=== PATIENT | female | born 1960 | race American Indian/Alaskan Native ===

== ENCOUNTER 2016-12-28 07:06 | Inpatient (IN) | payer MEDICAID, OTHER ==
[2016-12-28 07:07] VITALS: BMI 17.9
--- NOTE | 2016-12-28 08:20 | C.PDOC ---
History Of Present Illness Patient is a 56 y/o female presents to the ED requesting detox from alcohol and cocaine. Notes last drink was this morning. She also c/o feeling depressed. She has h/o Bipolar disorder. Otherwise, denies any SI/HI, chest pain, shortness of breath, headache, fever, chills, cough, nausea, vomiting, diarrhea, abdominal pain, dizziness or any other physical complaints at this time. Time Seen by Provider: 12/28/16 07:40 Chief Complaint (Nursing): Substance Abuse History Per: Patient History/Exam Limitations: no limitations Onset/Duration Of Symptoms: Gradual Current Symptoms Are (Timing): Still Present Suicide/Self Injury Attempted (Context): None Modifying Factor(s): Alcohol, Cocaine Severity: None Pain Scale Rating Of: 0 Associated Symptoms: denies: Suicidal Thoughts, Suicidal Plan Involuntary Hold By: None Recent travel outside of the [place]: No Additional History Per: Patient Past Medical History Reviewed: Historical Data, Nursing Documentation, Vital Signs Vital Signs: Last Vital Signs Temp 98.0 F 12/28/16 11:59 Pulse 75 12/28/16 11:59 Resp 19 12/28/16 11:59 BP 112/71 12/28/16 11:59 Pulse Ox 100 12/28/16 11:59 - Medical History PMH: Anemia, Asthma, Depression Denies: Diabetes, Hepatitis, HIV, HTN, Chronic Kidney Disease, Seizures, Sexually Transmitted Disease - [facility] Procedures DETOXIFICATION SERVICES FOR SUBSTANCE ABUSE TREATMENT (03/19/16) GROUP HEAD HOLDER FOR SUBSTANCE ABUSE TREATMENT, PSYCHOEDUCATION (03/19/16) Family History: States: Unknown Family Hx - Social History Hx Alcohol Use: Yes Hx Substance Use: Yes - Immunization History Hx Tetanus Toxoid Vaccination: No Hx Influenza Vaccination: No Hx Pneumococcal Vaccination: No Review Of Systems Except As Marked, All Systems Reviewed And Found Negative. Constitutional: Negative for: Fever, Chills Cardiovascular: Negative for: Chest Pain, Palpitations Respiratory: Negative for: Cough, Shortness of Breath Gastrointestinal: Negative for: Nausea, Vomiting, Abdominal Pain Musculoskeletal: Negative for: Neck Pain, Back Pain Skin: Negative for: Rash, Bruising Neurological: Negative for: Headache, Dizziness Psych: Negative for: Suicidal ideation Physical Exam - Physical Exam Appears: Non-toxic, No Acute Distress Skin: Normal Color, Warm, Dry Head: Atraumatic, Normacephalic Eye(s): bilateral: Normal Inspection Oral Mucosa: Moist Neck: Normal ROM, Supple Chest: Symmetrical Extremity: Bilateral: Atraumatic, Normal ROM Neurological/Psych: Oriented x3, Normal Speech, Normal Cognition ED Course And Treatment - Laboratory Results Result Diagrams: 12/28/16 08:29 08 08:29 O2 Sat by Pulse Oximetry: 98 (RA) Pulse Ox Interpretation: Normal Progress Note: Blood work, urinalysis ordered and reviewed. On re-evaluation, pt is resting comfortably, no acute distrees. No physical complaints at this time. Case was d/w who feels she doesn't meet criteria for Detox, but accepted her to psychiatric floor for Bipolar disorder. Disposition - Disposition Disposition: HOSPITALIZED Disposition Time: 10:44 Condition: STABLE - Clinical Impression Clinical Impression: Bipolar disorder - PA / PHLEBOTOMY TECHNOLOGIST / Resident Statement MD/DO has reviewed & agrees with the documentation as recorded. - Scribe Statement The provider has reviewed the documentation as recorded by the Scribe Jeremias Rivera All medical record entries made by the Scribe were at my direction and personally dictated by me. I have reviewed the chart and agree that the record accurately reflects my personal performance of the history, physical exam, medical decision making, and the department course for this patient. I have also personally directed, reviewed, and agree with the discharge instructions and disposition. Decision To Admit - Pt Status Changed To: Hospital Disposition Of: Inpatient - Admit Certification Admit to Inpatient:: After my assessment, the patient will require hospitalization for at least two midnights. This is because of the severity of symptoms shown, intensity of services needed, and/or the medical risk in this patient being treated as an outpatient. - InPatient: Physician Admission Certification: I certify that this patient requires 2 or more midnights of care for the following reason:: needs more then 2 days - . Bed Request Type: Psychiatry Admitting Physician: Elsie Costa Patient Diagnosis: Bipolar disorder
[2016-12-28 08:43] LABS: BASO # 0.1 K/uL (0.0-0.2); BASO % 1.1 % (0.0-2.0); EOS % 0.3 % (0.0-4.0); HEMATOCRIT 37.3 % (34.0-47.0); LYMPH # 1.2 K/uL (1.0-4.3); LYMPH % 19.9 % (20.0-40.0); MEAN CORPUSCULAR HEMOGLOBIN 30.9 pg (27.0-31.0); MEAN CORPUSCULAR HGB CONC 33.1 g/dL (33.0-37.0); MEAN PLATELET VOLUME 7.9 fL (7.2-11.7); MONO # 0.4 K/uL (0.0-0.8); MONO % 6.7 % (0.0-10.0); RED CELL DISTRIBUTION WIDTH 13.9 % (11.5-14.5)
[2016-12-28 08:46] LABS: MEAN CELL VOLUME 93.4 fL (81.0-99.0); WHITE BLOOD COUNT 6.2 K/uL (4.8-10.8)
[2016-12-28 09:00] LABS: CHLORIDE 104 mmol/L (98-107); POTASSIUM 4.1 mmol/L (3.6-5.2); SODIUM 141 mmol/L (132-148)
[2016-12-28 09:02] LABS: ALB/GLOB RATIO 1.3 (1.0-2.1); ALKALINE PHOSPHATASE 85 U/L (38-126); AST/SGOT 41 U/L (14-36); BILIRUBIN,TOTAL 0.6 mg/dL (0.2-1.3); BLOOD UREA NITROGEN 12 mg/dL (7-17); CARBON DIOXIDE 26 mmol/L (22-30); GFR AFRICAN-AMERICAN > 60; TOTAL PROTEIN 7.4 g/dL (6.3-8.3)
[2016-12-28 09:03] LABS: ALCOHOL SERUM 27 mg/dl (0-10); ALT/SGPT 39 U/L (9-52); CALCIUM 8.6 mg/dl (8.6-10.4); GLUCOSE,RANDOM 76 mg/dL (65-105)
[2016-12-28 09:33] LABS: RBC URINE 5 /hpf (0-3); URINE BACTERIA RARE (<OCC); URINE BILIRUBIN NEGATIVE (NEGATIVE); URINE BLOOD 1+ (NEGATIVE); URINE COLOR Yellow (YELLOW); URINE GLUCOSE (UA) NORMAL (Normal); URINE KETONE NEGATIVE (NEGATIVE); URINE LEUKOCYTE ESTERASE TRACE Leu/uL (Negative); URINE PROTEIN NEGATIVE (NEGATIVE); WBC URINE 2 /hpf (0-5)
[2016-12-28] MEDS ORDERED: Albuterol HFA 90 mcg/actuation (8 g) INH PRN (11:53)
--- NOTE | 2016-12-28 11:56 | PCM.PSYCH ---
Initial Psychiatric Evaluation - Initial Psychiatric Evaluation Type of Admission: Voluntary Legal Status: Capacity Chief Complaint (in patient's own words): "Depressed" History of Present Illness and Precipitating Events: The patient is seen, chart reviewed and case discussed. This is a 56-year-old female, single with no child, homeless and on disability. She says she lost her apartment recently. The patient reports feeling depressed "for years" but increased recently. She has suicidal thoughts but no plans. She also hears voices sometimes but no paranoia. She had been severely depressed in the past 2 and she claims in between she was not fully recovered. She also admits to drinking alcohol half pints a day every day since early 20s; denies DTs or seizures. She has never been to detox or rehabilitation. She also uses crack cocaine for several months. She smokes cigarettes "rarely" She denies all other drugs. Past psych history: Chronic depression, which recurrences. Family psych history: Denies Medical history: Asthma Current Medications: Active Medications Generic Name Dose Route Start Last Admin Trade Name Freq PRN Reason Stop Dose Admin Albuterol 1 puff 12/28/16 11:53 Ventolin Hfa 90 Mcg/Actuation (8 G) INH RQ4 PRN SOB Escitalopram Oxalate 5 mg 12/28/16 12:00 Lexapro PO DAILY ELVIN Gabapentin 300 mg 12/28/16 12:00 Neurontin PO BID ELVIN Hydroxyzine HCl 25 mg 12/28/16 11:51 Atarax PO Q4H PRN Anxiety Ibuprofen 400 mg 12/28/16 11:51 Motrin Tab PO Q6H PRN Pain, moderate (4-7) Trazodone HCl 50 mg 12/28/16 11:51 Desyrel PO HS PRN Insomnia Past Psychiatric History - Past Psychiatric History Previous Treatment History: None Pertinent Medical Hx (Current Medical&Sleep Prob, Allergies): Allergies Allergy/AdvReac Type Severity Reaction Status Date / Time No Known Allergies Allergy Verified 12/28/16 07:21 Albuterol Sulfate [Proair Hfa] 0.09 mg IH Q6 PRN 03/18/16 Alprazolam [Xanax] 0.5 mg PO DAILY PRN 03/18/16 oxyCODONE/Acetaminophen [Percocet 5/325 mg Tab] 1 tab PO Q6 PRN 11/03/16 Benztropine [Cogentin] 1 mg PO HS #30 tab 03/23/16 Haloperidol [Haldol] 5 mg PO HS #30 tab 03/23/16 Sertraline [Zoloft] 100 mg PO DAILY #30 tab 03/23/16 traZODone [Desyrel] 50 mg PO HS PRN #30 tab 03/23/16 Review of Systems - Psychiatric Psychiatric: Abnormal Sleep Pattern, Anhedonia, Anxiety, Auditory Hallucinations , Change in Appetite, Depression, Difficulty Concentrating, Hallucinations. absent: Homicidal Ideation, Memory Loss, Suicidal Ideation Mental Status Examination - Personal Presentation Personal Presentation: Looks older than stated age - Affect Affect: Constricted - Motor Activity Motor Activity: Calm - Reliability in Providing Information Reliability in Providing Information: Good - Speech Speech: Organized - Mood Mood: Depressed, Anxious - Formal Thought Process Formal Thought Process: No Impairment - Cognitive Functions Orientation: Person, Place, Situation, Time Sensorium: Alert Attention/Concentration: Attentive Estimate of Intelligence: Average Memory: Recent intact, as evidence by: Ability to recall events of the day, Remote intact, as evidenced by: Abilit to recall sig. life events - Risk Risk: Diminished functioning - Strength & Assets Inventory Strength & Assets Inventory: Cooperative - Limitations Limitations: Living alone DSM 5 DX - DSM 5 DSM 5 Diagnosis: Major depressive d/o -recurrent, severe with vague psychotic sx Alcohol use d/o - severe Cocaine use d/o - severe - Recommended/Plan of Treatment Treatment Recommendations and Plan of Treatment: Lexapro for depression Gabapentin for augmentation and alcohol, cocaine and anxiety As needed meds and vitamins Attend groups and activities MN for abstinence and CBT for relapse prevention Support and psychoeducation Consider and encourage MAT Refer to after care by SW 33 min Projected ELOS: 5-6 days Prognosis: Good with treatment Discharge Plan and Discharge Criteria: No severe depressive sxs Refer to IOP or rehab - Smoking Cessation Smoking Cessation Initiated: Yes
--- NOTE | 2016-12-28 18:32 | PCM.BM ---
<Melinda Blairan - Last Filed: 12/28/16 18:30> Treatment Plan Problems - Problems identified on initial assessmt Depression Date Initiated: 12/28/16 Time Initiated: 18:31 Assessment reference: NA Status: Active (ETOH/cocaine abuse) Treatment assets and liabiliti Patient Assests: cooperative, cognitively intact Patient Liabilities: substance abuse - Milieu Protocol Maintain good personal hygiene: daily Encourage regular showers, daily Remind patient to perform daily oral care Conduct patient checks and document Observation sheet: Q15 minutes Maintain personal safety: every shift Educate patient to report safety concerns to staff, every shift Monitor environment for contraband/sharps Medication safety: Monitor for expected outcome, potential side effects: every shift, Assess barriers to learning: every shift, Assess readiness for medication education: every shift Milieu Narrative: Lexapro for depression Gabapentin for augmentation and alcohol, cocaine and anxiety As needed meds and vitamins Attend groups and activities PA for abstinence and CBT for relapse prevention Support and psychoeducation Consider and encourage MAT Refer to after care by SW 33 min Discharge/Continuing Care - Treatment Team Participation Patient/Family/SO Statement: Lexapro for depression Gabapentin for augmentation and alcohol, cocaine and anxiety As needed meds and vitamins Attend groups and activities PA for abstinence and CBT for relapse prevention Support and psychoeducation Consider and encourage MAT Refer to after care by SW 33 min <Elsie Costa - Last Filed: 12/29/16 10:58> - Diagnosis (1) Bipolar disorder Status: Acute Interventions: 12/29/16 10:58 * Assess/adjust medications daily and /or as needed * See patient on an individual basis 7x/week to assess level of manic behaviors and stability * Discuss risks, benefits, side effects and alternatives of medications * (2) Alcohol dependence Status: Acute Interventions: 12/29/16 10:59 * Assess 7x/week regarding severity of withdrawal * Educate regarding risks, benefits, side effects and alternatives of medications * Use Motivational Interviewing for abstinence * Use CBT for relapse prevention * Medication management for withdrawal symptoms * Encourage medication assisted treatment * (3) Cocaine dependence Status: Acute Interventions: 12/29/16 10:59 * Assess 7x/week regarding severity of withdrawal * Educate regarding risks, benefits, side effects and alternatives of medications * Use Motivational Interviewing for abstinence * Use CBT for relapse prevention * Medication management for withdrawal symptoms * Encourage medication assisted treatment * <DelOrbe,Davida - Last Filed: 12/29/16 11:36> Family Contact Family involvement: Famliy/SO not involved - Goals for Treatment Patient goals for treatment: "I want to go to rehab." Discharge/Continuing Care - Education Needs Education Needs: Patient Medication, Patient Coping Skills, Patient Placement options, Patient Community resources - Discharge Discharge Criteria: Tolerates medication w/o severe side effects, No longer exhibiting s/s of withdrawal, Reduction of target symptoms Discharge to:: Substance Abuse Rehab - Treatment Team Participation Discussed with Family/SO: No Was Patient/Family/SO present at Treatment Team Meeting: Yes
--- NOTE | 2016-12-29 14:05 | PCM.PYCHPN ---
Psychiatric Progress Note - Psychiatric Progress Note Patient seen today, length of contact: 15 mins Patient Chief Complaint: "I am okay" Problems Identified/Issues Discussed: The pt is seen, chart reviewed, case discussed with staff. Pt reuqests Xanax to help her "calm down" and a sleeping medication because she was not able to sleep well last night. Pt reports racing thoughts currently and feelings of hopelessness and helplessness. Pt does not have hand tremors currently. Pt denies SI, AVH. Pt denies any physical complaints. The pt is compliant with medications and reports no side-effects. Symptoms are improving but needs more time to stabilize. After care discussed, support and psychoeducation given. Medication Change: Yes Medical Record Reviewed: Yes Mental Status Examination - Cognitive Function Orientation: Person, Place, Situation, Time Memory: Intact Attention: WNL Concentration: Poor Association: WNL Fund of Knowledge: Poor - Mood Mood: Depressed, Anxious - Affect Affect: Constricted - Speech Speech: Soft - Formal Thought Process Formal Thought Process: Flight of ideas, Circumstantial - Suicidal Ideation Suicidal Ideation: No - Homicidal Ideation Homicidal Ideation: No Goal/Treatment Plan - Goal/Treatment Plan Need for Continued Stay: Discharge may exacerbated symptoms, Severe functional impairment Progress Toward Problem(s) and Goals/Treatment Plan: Continue medications Support and psychoeducation daily Attend groups and activities daily After care planning by RONNY - Smoking Cessation Smoking Cessation Initiated: No
--- NOTE | 2016-12-30 12:53 | PCM.PYCHPN ---
Psychiatric Progress Note - Psychiatric Progress Note Patient seen today, length of contact: 15 mins Patient Chief Complaint: "I am okay" Problems Identified/Issues Discussed: Patient seen, chart reviewed, case discussed with staff. Pt reports feeling dizzy and says "she did not sleep good." Per staff, patient is not attending group activities. Pt denies SI, HI, AVH. The pt is compliant with medications and reports no side-effects. Symptoms are improving but needs more time to stabilize. After care discussed, support and psychoeducation given. Medical Problems: Asthma Diagnostic Results: Reviewed DSM 5 Symptoms Update: Improvement in symptoms with treatment Medication Change: No Medical Record Reviewed: Yes Mental Status Examination - Cognitive Function Orientation: Person, Place, Situation, Time Memory: Intact Attention: WNL Concentration: WNL Association: WNL Fund of Knowledge: [facility] Decription of patient's judgement and insights: Fair - Mood Mood: Anxious - Affect Affect: Other (Appropriate) - Speech Speech: Soft - Formal Thought Process Formal Thought Process: No Impairment - Suicidal Ideation Suicidal Ideation: No - Homicidal Ideation Homicidal Ideation: No Goal/Treatment Plan - Goal/Treatment Plan Need for Continued Stay: Remain at risks for inpatient hospitalization, Discharge may exacerbated symptoms, Severe functional impairment Progress Toward Problem(s) and Goals/Treatment Plan: Continue medications Support and psychoeducation daily Attend groups and activities daily Patient wants to go to [facility] for follow-up care after discharge from the hospital Estimated Date of D/C: 12/31/16 - Smoking Cessation Smoking Cessation Initiated: No
--- NOTE | 2017-01-01 17:22 | PCM.PYCHPN ---
Psychiatric Progress Note - Psychiatric Progress Note Patient seen today, length of contact: 15 mins Patient Chief Complaint: "I am okay" Problems Identified/Issues Discussed: Patient seen, chart reviewed, case discussed with staff. Patient reported feeling better than before.we will increase Lexapro from 5-10 mg .patient agreed . The pt is compliant with medications and reports no side-effects. Symptoms are improving but needs more time to stabilize. After care discussed, support and psychoeducation given. At the time of evaluation, patient was awake alert oriented 3, had no delusions , no auditory or visual hallucinations, no suicidal ideations or homicidal ideations. Medical Problems: Asthma Diagnostic Results: Reviewed DSM 5 Symptoms Update: Improving with treatment Medication Change: No Medical Record Reviewed: Yes Mental Status Examination - Cognitive Function Orientation: Person, Place, Situation, Time Memory: Intact Attention: WNL Concentration: WNL Association: WN Fund of Knowledge: [facility] Decription of patient's judgement and insights: Fair - Mood Mood: Anxious (Much less than before) - Affect Affect: Other (Appropriate) - Speech Speech: Appropriate - Formal Thought Process Formal Thought Process: No Impairment Psychotic Thoughts and Behaviors: None - Suicidal Ideation Suicidal Ideation: No - Homicidal Ideation Homicidal Ideation: No Goal/Treatment Plan - Goal/Treatment Plan Need for Continued Stay: Remain at risks for inpatient hospitalization, Discharge may exacerbated symptoms, Severe functional impairment Progress Toward Problem(s) and Goals/Treatment Plan: Continue medications Support and psychoeducation daily Attend groups and activities daily Will increase Lexapro from 5-10 mg daily Continue rest of the treatment as before Patient wants to go to [facility] for follow-up care after discharge from the hospital Estimated Date of D/C: 12/31/16 - Smoking Cessation Smoking Cessation Initiated: No
--- NOTE | 2017-01-02 16:42 | PCM.PYCHPN ---
Psychiatric Progress Note - Psychiatric Progress Note Patient seen today, length of contact: 15 mins Patient Chief Complaint: "I am okay" Problems Identified/Issues Discussed: Patient seen, chart reviewed, case discussed with staff. Patient reported feeling better than before especially after increasing the dose of Lexapro from 5-10 mg. . The pt is compliant with medications and reports no side-effects. Symptoms are improving but needs more time to stabilize. After care discussed, support and psychoeducation given. At the time of evaluation, patient was awake alert oriented 3, had no delusions , no auditory or visual hallucinations, no suicidal ideations or homicidal ideations. Medical Problems: Asthma Diagnostic Results: Reviewed DSM 5 Symptoms Update: Improving with treatment Medication Change: No Medical Record Reviewed: Yes Mental Status Examination - Cognitive Function Orientation: Person, Place, Situation, Time Memory: Intact Attention: WNL Concentration: WNL Association: WN Fund of Knowledge: [facility] Decription of patient's judgement and insights: Fair - Mood Mood: Anxious (Much less than before) - Affect Affect: Other (Appropriate) - Speech Speech: Appropriate - Formal Thought Process Formal Thought Process: No Impairment Psychotic Thoughts and Behaviors: None - Suicidal Ideation Suicidal Ideation: No - Homicidal Ideation Homicidal Ideation: No Goal/Treatment Plan - Goal/Treatment Plan Need for Continued Stay: Remain at risks for inpatient hospitalization, Discharge may exacerbated symptoms, Severe functional impairment Progress Toward Problem(s) and Goals/Treatment Plan: Continue medications Support and psychoeducation daily Attend groups and activities daily Continue treatment as before Patient wants to go to [facility] for follow-up care after discharge from the hospital Estimated Date of D/C: 01/03/17 - Smoking Cessation Smoking Cessation Initiated: No
[2017-01-03 07:42] VITALS: TEMP 98; O2SAT 99
--- NOTE | 2017-01-03 16:56 | PCM.PYCHPN ---
Psychiatric Progress Note - Psychiatric Progress Note Patient seen today, length of contact: 15 mins Patient Chief Complaint: I am okay" Problems Identified/Issues Discussed: Patient seen, chart reviewed, case discussed with staff. Patient reported feeling better than before especially after increasing the dose of Lexapro from 5-10 mg. . The pt is compliant with medications and reports no side-effects. Symptoms are improving but needs more time to stabilize. After care discussed, support and psychoeducation given. At the time of evaluation, patient was awake alert oriented 3, had no delusions , no auditory or visual hallucinations, no suicidal ideations or homicidal ideations. Medical Problems: Asthma Diagnostic Results: Reviewed DSM 5 Symptoms Update: Improving with treatment Medication Change: No Medical Record Reviewed: Yes Mental Status Examination - Cognitive Function Orientation: Person, Place, Situation, Time Memory: Intact Attention: WNL Concentration: WNL Association: WN Fund of Knowledge: [facility] Decription of patient's judgement and insights: Fair - Mood Mood: Anxious (Much less than before) - Affect Affect: Other (Appropriate) - Speech Speech: Appropriate - Formal Thought Process Formal Thought Process: No Impairment Psychotic Thoughts and Behaviors: None - Suicidal Ideation Suicidal Ideation: No - Homicidal Ideation Homicidal Ideation: No Goal/Treatment Plan - Goal/Treatment Plan Need for Continued Stay: Remain at risks for inpatient hospitalization, Discharge may exacerbated symptoms, Severe functional impairment Progress Toward Problem(s) and Goals/Treatment Plan: Continue medications Support and psychoeducation daily Attend groups and activities daily Continue treatment as before Patient wants to go to [facility] for follow-up care after discharge from the hospital Estimated Date of D/C: 01/05/17 - Smoking Cessation Smoking Cessation Initiated: No Reason for not providing: Patient doesn't smoke cigarettes
[2017-01-04 09:55] VITALS: BP 107/70; PULSE 59; RESP 18
--- NOTE | 2017-01-04 19:23 | PCM.PYCHDC ---
Mental Status Examination - Mental Status Examination Orientation: Person, Place, Situation, Time Memory: Intact Mood: Neutral Affect: Other (Appropriate) Speech: Appropriate Attention: WNL Concentration: WNL Association: WNL Fund of Knowledge: WNL Formal Thought Process: No Impairment Description of patient's judgement and insight: Fair Psychotic Thoughts and Behaviors: None Suicidal Ideation: No Current Homicidal Ideation?: No Discharge Summary - Discharge Note Reason for Hospitalization: Major depressive disorder recurrent severe Alcohol use disorder severe Cocaine use disorder severe Laboratory Data: Reviewed Consultations:: List each consultation separately and include: 1. Reason for request. 2. Findings. 3. Follow-up Summary of Hospital Course include:: 1. Description of specific treatment plan utilized for patients during their course of treatmen. 2. Summarize the time- course for resolution of acute symptoms and/or regressed behaviors. 3. Describe issues identified and worked on during hospitalization. 4. Describe medication utilized. 5. Describe medical problems identified and treated. 6. Reassessment of suicide risk Summary of Hospital Course: he patient is seen, chart reviewed and case discussed. This is a 56-year-old female, single with no child, homeless and on disability. She says she lost her apartment recently. The patient reports feeling depressed "for years" but increased recently. She has suicidal thoughts but no plans. She also hears voices sometimes but no paranoia. She had been severely depressed in the past 2 and she claims in between she was not fully recovered. She also admits to drinking alcohol half pints a day every day since early 20s; denies DTs or seizures. She has never been to detox or rehabilitation. She also uses crack cocaine for several months. She smokes cigarettes "rarely" She denies all other drugs. Past psych history: Chronic depression, which recurrences. Family psych history: Denies Medical history: Asthma 1 on the unit patient was treated with Ativan for alcohol withdrawal symptoms and also was started on Lexapro for depression. Patient was also started on other when necessary medications. Patient's Lexapro was increased from 5-10 mg daily course of treatment. With this increase patient started feeling little better. Today patient was stable and ready for discharge. Had no withdrawal symptoms. At the time of evaluation and discharge, patient was awake alert oriented 3, had no delusions, no auditory or visual hallucinations, no suicidal ideations or homicidal ideations. She was discharged in a stable condition. - Final Diagnosis (DSM 5) Condition upon Discharge: STABLE Disposition: HOME/ ROUTINE Follow-up Treatment Plan: [facility] in [place] for follow-up care after discharge from the hospital - Smoking Cessation Smoking Cessation Medication prescribed: No - Antipsychotic Medications Pt discharged on 2 or more routine antipsychotic medications: No
== END 2017-01-04 10:56 | disposition home or self-care (01) | DRG 430 ==
LOC: C.ER 07:06 → C.5E 10:44
PROVIDERS: ADMIT Psychiatry & Neurology Psychiatry; ATTEND Psychiatry & Neurology Psychiatry
PROC: HZ2ZZZZ Detoxification Services for Substance Abuse Treatment (ICD-10-PCS; principal; 2016-12-28)
PROC: HZ42ZZZ Group Counseling for Substance Abuse Treatment, Cognitive-Behavioral (ICD-10-PCS; 2016-12-28)
PROC: HZ52ZZZ Individual Psychotherapy for Substance Abuse Treatment, Cognitive-Behavioral (ICD-10-PCS; 2016-12-28)
PROC: HZ59ZZZ Individual Psychotherapy for Substance Abuse Treatment, Supportive (ICD-10-PCS; 2016-12-28)
PROC: HZ56ZZZ Individual Psychotherapy for Substance Abuse Treatment, Psychoeducation (ICD-10-PCS; 2016-12-28)
PROC: HZ46ZZZ Group Counseling for Substance Abuse Treatment, Psychoeducation (ICD-10-PCS; 2016-12-28)
DX: F33.3 Major depressive disorder, recurrent, severe with psychotic symptoms (principal); R45.851 Suicidal ideations; F14.20 Cocaine dependence, uncomplicated; F10.230 Alcohol dependence with withdrawal, uncomplicated; J45.909 Unspecified asthma, uncomplicated; Y90.1 Blood alcohol level of 20-39 mg/100 ml; Z59.0 Homelessness

== ENCOUNTER → 2017-05-12 10:38 | Emergency (ER) | payer OTHER ==
[2017-05-12 10:39] VITALS: BMI 17.9
== END | disposition left against medical advice (07) ==
LOC: C.ER 10:38
DX: Z02.89 Encounter for other administrative examinations (principal); R06.02 Shortness of breath